=== PATIENT | male | born 1990 | race Caucasian/White ===

== ENCOUNTER 2017-03-30 19:05 | Emergency (ER) | payer OTHER ==
--- NOTE | 2017-03-30 21:51 | RADIOLOGY REPORT (SQ) ---
EXAM DESCRIPTION: FOOT RIGHT COMPLETE COMPLETED DATE/TIME: 03/30/2017 9:16 pm REASON FOR STUDY: lacerations to foot COMPARISON: None. NUMBER OF VIEWS: Three views. TECHNIQUE: AP, lateral and oblique radiographic images acquired of the right foot. LIMITATIONS: None. FINDINGS: MINERALIZATION: Normal. BONES: Comminuted moderately displaced fracture of the distal phalanx of the right great toewith denise cent soft tissue swelling -laceration concerning for open fracture. No radiopaque foreign body ident ified. . OTHER: No other significant finding. IMPRESSION: Comminuted moderately displaced fracture of the distal phalanx of the right great toewit h adjacent soft tissue swelling -laceration concerning for open fracture. No radiopaque foreign body identified. TECHNICAL DOCUMENTATION: JOB ID: [id number] [employer]- All Rights Reserved
[2017-03-30] MEDS ORDERED: LIDOCAINE 1% INJ-PF (10 MG/ML) 30 ML SDV INJ ONE (23:15)
[2017-03-30] MEDS ORDERED: CLINDAMYCIN HCL 150 MG CAPSULE PO ONE (23:17)
--- NOTE | 2017-03-31 01:40 | ER Document Report ---
ED General - General Chief Complaint: Laceration Stated Complaint: RIGHT FOOT INJURY Time Seen by Provider: 03/30/17 22:47 Notes: Patient is a 26-year-old male who presents after getting his foot caught up on the lawnmower. He was trying to kick the [employer] knocked free grass. He actually kicked underneath the lawnmower in the lumbar blade cut his left big toe as well as took off the very tip of his second toe of his left foot. No other complaints at this time. He is up-to-date on tetanus. TRAVEL OUTSIDE OF THE [place] IN LAST 30 DAYS: No - Related Data Allergies/Adverse Reactions: No Known Allergies Allergy (Unverified 03/30/17 19:18) Past Medical History - Social History Smoking Status: Never Smoker Frequency of alcohol use: None Drug Abuse: None Family History: Reviewed & Not Pertinent Renal/ Medical History: Denies: Hx Peritoneal Dialysis Review of Systems - Review of Systems Notes: My Normal Review Basic REVIEW OF SYSTEMS: CONSTITUTIONAL : Denies fever, chills, or sweats. Denies recent illness. MUSCULOSKELETAL: Laceration and fracture to left big toe. SKIN: Denies rash or skin lesions. NEUROLOGICAL: Denies sensory or motor loss. ALL OTHER SYSTEMS REVIEWED AND NEGATIVE. Physical Exam - Vital signs Vitals: Temp Pulse Resp BP Pulse Ox 97.7 F 63 18 130/66 H 98 03/30/17 19:11 03/30/17 19:11 03/30/17 19:11 03/30/17 19:11 03/30/17 19:11 - Notes Notes: General Appearance: Well nourished, alert, cooperative, no acute distress, mild obvious discomfort. Vitals: reviewed, See vital signs table. Extremities: strength 5/5 in all extremities, good pulses in all extremities, patient has laceration and fracture to left big toe. Laceration starts proximally and then goes around the toe to the posterior aspect. The lateral aspect of the soft tissue of the toe is intact. Skin: warm, dry, appropriate color, no rash Neuro: speech clear, oriented x 3, normal affect, responds appropriately to questions. distal sensation intact. Course - Re-evaluation Re-evalutation: 03/31/17 07:49 I thoroughly irrigated toe with approximately 250 mL's of saline. I thoroughly cleaned the toe with sure cleanse. I sutured the toe closed and then place a splint on it. I gave the patient crutches informed of importance of being nonweightbearing until he follows of the orthopedist. The second toe just had a very small amount of soft tissue that was jumped off the end of the toe. There is no bone exposure. I informed him that they will have to do continues dressing changes every day until this granulates in and heels. I will place him on antibiotic to help prevent infection being that the wound was initially very dirty. At the [place] several pieces of grass and thoroughly flushed. Informed him that he must return to ER immediately if there is any redness or swelling, foul-smelling drainage, or any signs of infection to the foot. Patient agrees with plan will be discharged home. Dictation of this chart was performed using voice recognition software; therefore, there may be some unintended grammatical errors. - Vital Signs Vital signs: Temp Pulse Resp BP Pulse Ox 98.2 F 56 L 16 131/70 H 98 03/30/17 22:13 03/31/17 02:12 03/31/17 02:12 03/31/17 02:12 03/31/17 02:12 Procedures - Laceration/Wound Repair left big toe Wound length (cm): 4 Wound's Depth, Shape: Irregular Laceration pre-procedure: Shur-Clens applied Anesthetic type: 1% Lidocaine Volume Anesthetic (mLs): 3 Wound explored: Contaminated Irrigated w/ Saline (mLs): 250 Wound Repaired With: Sutures Suture Size/Type: 5:0, 4:0, Ethilon Number of Sutures: 10 Post-procedure wound care: Sterile dressing applied, Splint applied Notes: 03/31/17 07:52 Wound was thoroughly irrigated. I did pull all debris from the wound. I then sutured the wound closed. I then covered the wound with an iodoform nonstick dressing. Then placed his toe in a splint. Discharge - Discharge Clinical Impression: Laceration Toe fracture, right Qualifiers: Encounter type: initial encounter Toe: great toe Fracture type: open Phalanx: distal Fracture alignment: displaced Qualified Code(s): S92.421B - Displaced fracture of distal phalanx of right great toe, initial encounter for open fracture Condition: Good Disposition: HOME, SELF-CARE Additional Instructions: Please change the dressing on the 2nd toe everyday with a nonstick dressing. clean with soap and water. Please take the antibiotics as prescribed. return to the ER immediately if you develop redness and swelling in the toe, fevers, or foul smelling drainage. Please call the orthopedist or court stenographer hua morning for a close followup appointment within 5 days. Have the sutures removed in 7 days. Do not bear weight on your foot until cleared by the orthopedist. Prescriptions: Clindamycin HCl 300 mg PO ASDIR #56 capsule Forms: Special Work Note Referrals: FAUSTINO DOE MD [ACTIVE STAFF] - 04/02/17
[2017-03-31 02:29] VITALS: BP 131/70
== END 2017-03-31 02:14 | disposition home or self-care (01) ==
LOC: ER 19:05
DX: S92.421B Displaced fracture of distal phalanx of right great toe, initial encounter for open fracture (principal); W29.8XXA Contact with other powered hand tools and household machinery, initial encounter
CPT/HCPCS: 99283